=== PATIENT | female | born 1970 | race Caucasian/White ===

== ENCOUNTER 2017-08-18 08:50 | Emergency (ER) | payer MEDICAID ==
[2017-08-18 09:00] VITALS: BP 117/69
[2017-08-18 09:19] LABS: Urine Bilirubin Negative (NEGATIVE); Urine Blood 50 /ul (NEGATIVE); Urine Ketone Negative (NEGATIVE); Urine Nitrite Negative (NEGATIVE); Urine Protein Negative (NEGATIVE); Urine Specific Gravity 1.025 SP.GR. (1.005-1.010); Urine Urobilinogen Normal (NORMAL); Urine pH 5.5 pH (5.0-7.0)
[2017-08-18 09:28] LABS: Urine Appearance Cloudy; Urine Color Dark Yellow
[2017-08-18 09:29] LABS: Urine Bacteria 1+
--- NOTE | 2017-08-18 10:06 | ERNOTE ---
ER Female HPI Date of Service: 08/18/17 Stated Complaint: UTI Presenting Symptoms: dysuria Time Seen by Provider: 08/18/17 09:20 Source: patient Immunizations: IMMUNIZATION HX Immunizations Up to Date Yes History of Influenza Vaccine No Hx Pneumococcal Vaccination No Allergies/Adverse Reactions: Allergies varenicline [From Chantix] Allergy (Mild, Verified 08/18/17 09:01) Hives phenazopyridine [From Pyridium] Adverse Reaction (Intermediate, Verified 09:01) Vomiting ketorolac [From Toradol] Adverse Reaction (Mild, Verified 08/18/17 09:01) Headache Home Medications: HOME MEDICATIONS Albuterol Sulfate [Albuterol Sulfate 2.5 MG/3 ML] 1 vial INH PRN PRN 08/18/17 [ Last Taken Unknown] Levofloxacin [Levaquin] 500 mg PO DAILY #3 tab 08/18/17 [Last Taken Unknown] - History of Present Illness Narrative: pt presents with bladder urgency, urinary frequency and burning with urination. No fever or chills, pt sts that she has mild back pain Date (Duration): 08/18/17 Time (Timing): 09:20 Timing: Present: constant, getting worse Quality: Present: moderate Onset Location: Present: suprapubic Radiation: Present: none Activities at Onset: Present: none Prior Abdominal Problems: Present: none Modifying Factors - (Worsens): Present: urinating Associated Symptoms: Present: dysuria, urinary frequency, low back pain. Absent : fever/chills, diaphoresis, nausea Prior Treatment: Present: recently seen Review of Systems - Review of Systems Constitutional: Present: no symptoms reported. Absent: fever, chills EYE: Present: no symptoms reported ENT: Present: no symptoms reported Respiratory: Present: no symptoms reported Cardiology: Present: no symptoms reported Gastrointestinal/Abdominal: Present: no symptoms reported. Absent: nausea, vomiting, constipation, abdominal pain Genitourinary: Present: frequency, dysuria. Absent: decreased urinary output, discharge Musculoskeletal: Present: no symptoms reported Skin: Present: no symptoms reported Neurological: Present: no symptoms reported Endocrine: Present: no symptoms reported - Patient's Past Medical History Patient History - Medical: UTI'S Patient History - Cardiac/Respiratory: COPD Patient History - Surgical Procedures: Hysterectomy, Tubal Ligation, Other Patient History - Other: None - Social History Living Situations: alone Abuse History: No History of abuse Psych History: No pertinent hx Smoking Status: Current every day smoker Have you smoked in the past 12 months: Yes Do you dip or chew tobacco: No Alcohol Use: none Drug Use: none - Immunizations Immunizations Up to Date: Yes Hx Pneumococcal Vaccination: No History of Influenza Vaccine: No Physical Exam - Physical Exam General Appearance: Present: alert, mild distress Head Exam: Present: normal inspection Ears, Nose, Throat: Present: normal ENT inspection Neck: Present: normal inspection Respiratory: Present: no respiratory distress Cardiovascular/Chest: Present: regular rate, rhythm Gastrointestinal/Abdominal: Present: normal bowel sounds Back Exam: Present: normal inspection, vertebral tenderness - L2-L5 Extremity Exam: Present: normal inspection Neurological Exam: Present: alert, oriented, normal mood/affect Skin Exam: Present: normal color Lymphatic Exam: Present: no adenopathy ED Progress - Results and Orders Patient's Lab Results:: I have reviewed the patient's lab results. - mild UTI, leukocyte esterase of 100, 5-10 WBC - Vital Signs Patient's Vital Signs:: I have reviewed the patient's vital signs. Vital Signs: Vital Signs 08/18/17 08:54 Temperature 36.3 C L Pulse Rate 85 Respiratory 16 Rate Blood Pressure 117/69 O2 Sat by Pulse 98 Oximetry - Progress/Reassessment Chief Complaint: Genitourinary Problem Plan - Plan Plan: pt to be discharged on levaquin as she sts that this is what works for her UTI Departure Clinical Impression: UTI (urinary tract infection) - Departure Disposition: Home self-care Condition: Good Prescriptions: Levofloxacin [Levaquin] 500 mg PO DAILY #3 tab
== END 2017-08-18 10:21 | disposition home or self-care (01) ==
LOC: ER 08:50
DX: N39.0 Urinary tract infection, site not specified (principal); F17.200 Nicotine dependence, unspecified, uncomplicated